=== PATIENT | female | born 1960 | race African-American/Black ===

== ENCOUNTER 2018-10-23 21:04 | Emergency (ER) | payer SELFPAY ==
[~2018-10-23] VITALS: Ht 165.1 cm; Wt 70.8 kg
[2018-10-23 21:20] VITALS: BP 200/116
--- NOTE | 2018-10-23 21:20 | NUR ---
ED Nurse Note: Pt was brought in ED by [employer] for medical clearance. Pt c/o HTN. BP 200/116 mmhg at this time, waiting for orders.
--- NOTE | 2018-10-23 21:26 | Emergency Room Report ---
History of Present Illness General Chief Complaint: Medical Clearance Source: Patient Present Illness HPI This is a 57 yo female with h/o HTN. she was brought in by police with c/o medical clearance. she has not had her atenolol for 3 days. also c/o throbbing headache. no fever or chills. no n/v/d. no cp. no focal deficits. Allergies: Coded Allergies: No Known Allergies (Unverified , 10/23/18) Patient History Past Medical History: see triage record, old chart reviewed, HTN Past Surgical History: other Pertinent Family History: none Social History: Denies: smoking Now: No Immunizations: other Reviewed Nursing Documentation: PMH: Agreed; PSxH: Agreed Nursing Documentation-PMH Past Medical History: No History, Except For Hx Hypertension: Yes Review of Systems Eye: Denies: eye pain, blurred vision ENT: Denies: ear pain, nose congestion, throat swelling Respiratory: Denies: cough, shortness of breath Cardiovascular: Denies: chest pain, palpitations Gastrointestinal: Denies: abdominal pain, diarrhea, nausea, vomiting Musculoskeletal: Denies: back pain, joint pain Skin: Denies: rash Neurological: Reports: headache; Denies: numbness Endocrine: Denies: increased thirst, increased urine Hematologic/Lymphatic: Denies: easy bruising All Other Systems: negative except mentioned in HPI Physical Exam Vital Signs Date Time Temp Pulse Resp B/P (MAP) Pulse Ox O2 Delivery O2 Flow Rate FiO2 10/23/18 21:06 97.5 109 16 200/116 (144) 96 Room Air vitals with htn Sp02 EP Interpretation: reviewed, normal General Appearance: well appearing, no apparent distress, alert Head: normocephalic, atraumatic Eyes: bilateral eye PERRL, bilateral eye EOMI ENT: hearing grossly normal, normal pharynx Neck: full range of motion, supple, no meningismus Respiratory: chest non-tender, lungs clear, normal breath sounds Cardiovascular #1: regular rate, rhythm, no murmur Gastrointestinal: normal bowel sounds, non tender, no mass, no organomegaly, no bruit, non-distended Musculoskeletal: back normal, gait/station normal, normal range of motion Psychiatric: mood/affect normal Skin: warm/dry Medical Decision Making Diagnostic Impression: Primary Impression: Hypertension Qualified Codes: I10 - Essential (primary) hypertension Additional Impression: Head ache Qualified Codes: G44.209 - Tension-type headache, unspecified, not intractable ER Course Pt with headache and htn. no e/o end organ damage. Atenolol given here. After 30 minutes of receiving atenolol, blood pressure improved. Still elevated. I gave her another dose of atenolol. Patient said that she does not want to stay any longer. Will discharge to police. Last Vital Signs Date Time Temp Pulse Resp B/P (MAP) Pulse Ox O2 Delivery O2 Flow Rate FiO2 10/23/18 21:06 97.5 109 16 200/116 (144) 96 Room Air Status: improved Disposition: D/C TO [facility] IN [facility] Condition: Improved Scripts Atenolol* (TENORMIN*) 100 Mg Tablet 100 MG ORAL DAILY, #90 TAB Prov: Ludwig Sidhu MD 10/23/18 Additional Instructions: Follow up with your doctor in 7 days. Take your blood pressure medications. Return if symptoms worsen. Ludwig Sidhu MD Oct 23, 2018 21:26
[2018-10-23] MEDS ORDERED: TENORMIN50 MG ORAL (21:27)
[2018-10-23] MEDS ORDERED: Acetaminophen 500mg (ES) tab ORAL ONE (21:30)
[2018-10-23] MEDS ORDERED: Atenolol 25mg tab ONE ×2 (21:42→21:49)
--- NOTE | 2018-10-23 21:45 | NUR ---
ED Nurse Note: TO PER ERMD INPUT X2 TABLET OF 25 MG ATENOLOL
[2018-10-23] MEDS ORDERED: Atenolol 25mg tab ORAL ONE ×2 (22:00→22:30)
[2018-10-23] MEDS ORDERED: ATENOLOL100 MG ORAL (22:31)
[2018-10-23 22:40] VITALS: BP 181/121
--- NOTE | 2018-10-23 22:40 | NUR ---
ER DISCHARGE NOTE: Patient is cleared to be discharged per Dr. Sidhu. Bp wnet down to 181/120. Mes given again. Medical report issued. Pt is aox4 on room air with stable vital signs. Pt and [employer] were given dc and prescription instructions were able to verbalize understanding. Pt's id band removed. Pt is able to ambulate with steady gait and took all belongings. Accompanied by [employer].
== END 2018-10-23 22:40 ==
LOC: EMR 21:55
DX: G44.209 Tension-type headache, unspecified, not intractable (principal); I10 Essential (primary) hypertension
CPT/HCPCS: 99282